=== PATIENT | female | born 1995 | race Caucasian/White ===

== ENCOUNTER → 2016-12-06 | Outpatient (REF) | payer BC, OTHER, MEDICAID ==
[~2016-12-06] MED LIST: ACET50TA PO; VITAPRTA PO
== END ==
LOC: M LAB REF 14:03
PROVIDERS: ATTEND Obstetrics & Gynecology
DX: Z12.4 Encounter for screening for malignant neoplasm of cervix (principal)

== ENCOUNTER → 2017-02-26 | Outpatient (CLI) | payer BC, MEDICAID ==
--- NOTE | 2017-02-26 09:46 | REP ---
LUMBAR SPINE SERIES: Five views. HISTORY: Low back pain. No comparison radiographs. FINDINGS: Lumbar vertebral body heights are preserved. Alignment is normal. There is some disc space narrowing at L3-4 and L4-5. Pedicles and posterior elements are intact. There is no evidence of spondylolysis or spondylolisthesis. Psoas margins are symmetric. Sacrum and SI joints are unremarkable. There are clips in right upper quadrant and surgical in the left upper quadrant of the abdomen. IMPRESSION: Mild degenerative narrowing of the L3-4 and L4-5 discs. No other abnormality.
== END ==
LOC: M CLY 08:36
PROVIDERS: ATTEND Family Medicine
DX: M54.5 Low back pain (principal); M51.36 Other intervertebral disc degeneration, lumbar region

== ENCOUNTER → 2017-07-11 | Outpatient (CLI) | payer BC, OTHER ==
[2017-07-11 19:59] LABS: BASO % 0.6 % (0.0-1.0); EOS # 0.1 10^3/uL (0.0-0.50); EOS % 1.5 % (0.0-3.0); IMMATURE GRANULOCYTE % 0.3 % (0-0); LYMPH # 1.9 10^3/uL (1.5-6.5); LYMPH % 26.2 % (24.0-44.0); MEAN CORPUSCULAR HEMOGLOBIN 29.2 pg (27.0-33.0); MEAN CORPUSCULAR HGB CONC 32.9 g/dl (32.0-36.5); MEAN CORPUSCULAR VOLUME 88.9 fl (80.0-96.0); MONO # 0.5 10^3/uL (0.0-0.8); MONO % 7.3 % (0.0-5.0); NEUTROPHILS # 4.7 10^3/uL (1.8-7.7); NEUTROPHILS % 64.1 % (36.0-66.0); PLATELET COUNT, AUTOMATED 285 10^3/uL (150-450); RED CELL DISTRIBUTION WIDTH 12.6 % (11.5-14.5)
[2017-07-13 12:04] LABS: HBsAg Prenatal NEGATIVE (NEGATIVE)
[2017-07-13 12:36] LABS: WHITE BLOOD COUNT 7.3 10^3/uL (4.0-10.0)
== END ==
LOC: M SMT 13:30
PROVIDERS: ATTEND Advanced Practice Midwife
DX: Z34.81 Encounter for supervision of other normal pregnancy, first trimester (principal); Z3A.08 8 weeks gestation of pregnancy

== ENCOUNTER → 2017-08-08 | Outpatient (REF) | payer OTHER | LOC: M LAB REF 17:28 | PROVIDERS: ATTEND Advanced Practice Midwife | DX: Z34.81 Encounter for supervision of other normal pregnancy, first trimester (principal) ==

== ENCOUNTER → 2017-09-05 | Outpatient (REF) | payer OTHER, MEDICAID | LOC: M LAB REF 16:59 | PROVIDERS: ATTEND Advanced Practice Midwife | DX: Z34.82 Encounter for supervision of other normal pregnancy, second trimester (principal); Z3A.00 Weeks of gestation of pregnancy not specified ==

== ENCOUNTER → 2017-09-19 | Outpatient (CLI) | payer BC, OTHER, MEDICAID ==
--- NOTE | 2017-09-19 13:50 | REP ---
Clinical: Anatomical evaluation. Comparison: None . Findings: Examination demonstrates a single live intrauterine in cephalic presentation. motion is identified by technologist. Placenta is noted posteriorly and grade zero without evidence for placenta previa or abruption. Amniotic fluid volume is normal. Cervix measures 4.7 cm in length and appears closed. No evidence for nuchal cord. Gestational age by LMP 18 weeks 4 days with ERIC 02/16/2018 . Gestational age by current measurements 19 weeks 0 days with ERIC 02/13/2018 . FHR equals 153 beats per minute. BPD 4.3 cm 18 weeks 6 days HC 15.9 cm 18 weeks 5 days AC 13.2 cm 18 weeks 5 days FL 3.1 cm 19 weeks 4 days HL 3.0 cm 19 weeks 5 days HC/AC ratio 1.21 Estimated weight 272 grams ( 64th percentile). Anatomical assessment demonstrates normal structures including cranium, choroid plexus, cavum, cerebellum/posterior fossa, lungs, diaphragm, stomach, cord insertion/three-vessel cord, kidneys/bladder, spine, and extremities. Impression: Single live intrauterine in cephalic presentation demonstrating appropriate interval growth. Limited evaluation of the facial features and heart/ventricular outflow tracts may warrant reevaluation and follow-up. Remainder of the anatomical assessment is complete and normal. Signed by Keaton Dsouza MD 09/19/2017 01:42 P
== END ==
LOC: M RAD 12:51
PROVIDERS: ATTEND Advanced Practice Midwife
DX: Z34.82 Encounter for supervision of other normal pregnancy, second trimester (principal); Z3A.18 18 weeks gestation of pregnancy

== ENCOUNTER → 2017-10-05 | Outpatient (CLI) | payer BC, OTHER, MEDICAID | LOC: M RAD 13:32 | DX: Z34.82 Encounter for supervision of other normal pregnancy, second trimester (principal); Z36.2 Encounter for other antenatal screening follow-up; Z3A.20 20 weeks gestation of pregnancy | CPT/HCPCS: 76816 ==

== ENCOUNTER → 2017-11-02 | Outpatient (CLI) | payer BC, OTHER, MEDICAID | LOC: M RAD 15:20 | DX: Z36.2 Encounter for other antenatal screening follow-up (principal) | CPT/HCPCS: 76816 ==

== ENCOUNTER → 2017-12-28 | Outpatient (CLI) | payer BC, OTHER, MEDICAID | LOC: M RAD 11:26 | DX: Z36.9 Encounter for antenatal screening, unspecified (principal); Z3A.32 32 weeks gestation of pregnancy ==

== ENCOUNTER 2018-01-20 08:48 | Inpatient (IN) | payer BC, OTHER, MEDICAID ==
[2018-01-20] MEDS ORDERED: ONDANSETRON 4MG/2ML VIAL (J2405) IV (13:15)
[2018-01-20 13:47] LABS: BASO # 0.1 10^3/uL (0.0-0.2); BASO % 0.4 % (0.0-1.0); EOS % 0.2 % (0.0-3.0); HEMATOCRIT 36.9 % (36.0-47.0); HEMOGLOBIN 12.7 g/dl (12.0-15.5); IMMATURE GRANULOCYTE % 0.3 % (0-3.0); LYMPH # 2.3 10^3/uL (1.5-6.5); MEAN CORPUSCULAR HEMOGLOBIN 30.2 pg (27.0-33.0); MEAN CORPUSCULAR HGB CONC 34.4 g/dl (32.0-36.5); MEAN CORPUSCULAR VOLUME 87.6 fl (80.0-96.0); MONO # 0.6 10^3/uL (0.0-0.8); MONO % 4.5 % (0.0-5.0); NEUTROPHILS # 9.2 10^3/uL (1.8-7.7); NEUTROPHILS % 75.6 % (36.0-66.0); PLATELET COUNT, AUTOMATED 298 10^3/uL (150-450); RED BLOOD COUNT 4.21 10^6/uL (4.00-5.40); RED CELL DISTRIBUTION WIDTH 13.4 % (11.5-14.5); WHITE BLOOD COUNT 12.1 10^3/uL (4.0-10.0)
[2018-01-20] MEDS: BETAMETHASONE SOLUSPAN 6MG/ML INJ 5ML (J0702) IM (13:52)
[2018-01-20] MEDS: NIFEdipine 10 MG CAP PO ×2 (13:57→15:35)
[2018-01-20 13:59] LABS: APPEARANCE, URINE CLEAR (CLEAR); BACTERIA, URINE AUTO NEGATIVE (NEGATIVE); BILIRUBIN, URINE AUTO NEGATIVE (NEGATIVE); BLOOD, URINE BLOOD NEGATIVE (NEGATIVE); COLOR, URINE STRAW (YELLOW); GLUCOSE, URINE (UA) AUTO NEGATIVE (NEGATIVE); KETONE, URINE AUTO TRACE mg/dL (NEGATIVE); LEUKOCYTE ESTERASE, URINE AUTO NEGATIVE (NEGATIVE); NITRITE, URINE AUTO NEGATIVE (NEGATIVE); PROTEIN, URINE AUTO NEGATIVE (NEGATIVE); RBC, URINE AUTO 0 /HPF (0-3); SPECIFIC GRAVITY URINE AUTO 1.003 (1.002-1.035); SQUAMOUS EPITHELIAL CELL UR AU 0 /HPF (0-6); UROBILINOGEN, URINE AUTO 0.2 mg/dL (0.0-2.0); WBC, URINE AUTO 0 /HPF (0-3)
[2018-01-20] MEDS: LR 1,000 ML IV ×2 (13:59→21:39)
[2018-01-20 14:07] LABS: AMPHETAMINES URINE REFLEX NEGATIVE (NEGATIVE); BARBITURATES URINE REFLEX NEGATIVE (NEGATIVE); BENZODIAZEPINES URINE REFLEX NEGATIVE (NEGATIVE); CANNABINOIDS URINE REFLEX NEGATIVE (NEGATIVE); COCAINE METABOLITE URINE REFLE NEGATIVE (NEGATIVE); METHADONE URINE REFLEX NEGATIVE (NEGATIVE); OPIATES URINE REFLEX NEGATIVE (NEGATIVE); PHENCYCLIDINE URINE REFLEX NEGATIVE (NEGATIVE)
[2018-01-20 14:12] LABS: ALBUMIN/GLOBULIN RATIO 0.67 (1.00-1.93); ALKALINE PHOSPHATASE 188 U/L (45-117); ALT/SGPT 23 U/L (12-78); ANION GAP 10 MEQ/L (8-16); AST/SGOT 27 U/L (7-37); BILIRUBIN,TOTAL 0.3 MG/DL (0.2-1.0); BLOOD UREA NITROGEN 6 MG/DL (7-18); CARBON DIOXIDE LEVEL 23 MEQ/L (21-32); CHLORIDE LEVEL 106 MEQ/L (98-107); GLOMERULAR FILTRATION RATE > 60.0 (>60); GLUCOSE, FASTING 67 MG/DL (70-100); SODIUM LEVEL 139 MEQ/L (136-145); TOTAL PROTEIN 7.5 GM/DL (6.4-8.2)
[2018-01-20] MEDS: CEFAZOLIN SOD 1 GM in APPROPRIATE DILUENT 1 EA IV (21:45)
[2018-01-20] MEDS: ACETAMINOPHEN 500 MG TAB PO (23:23)
[2018-01-21] MEDS: LR 1,000 ML IV ×2 (02:14→08:56)
[2018-01-21] MEDS: NIFEdipine 10 MG CAP PO (03:26)
[2018-01-21] MEDS: CEFAZOLIN SOD 1 GM in APPROPRIATE DILUENT 1 EA IV ×2 (05:49→14:15)
[2018-01-21] MEDS: ACETAMINOPHEN 500 MG TAB PO (07:40)
[2018-01-21] MEDS: BETAMETHASONE SOLUSPAN 6MG/ML INJ 5ML (J0702) IM (14:15)
[2018-01-29 06:31] LABS: SUMMARY SEE SEPARATE REPORT
== END 2018-01-21 16:30 | disposition home or self-care (01) | DRG 563 ==
LOC: M LDO 08:48 → M LDI 13:44
DX: O60.03 Preterm labor without delivery, third trimester (principal); E86.0 Dehydration; Z3A.36 36 weeks gestation of pregnancy; O99.843 Bariatric surgery status complicating pregnancy, third trimester; O99.613 Diseases of the digestive system complicating pregnancy, third trimester; K52.9 Noninfective gastroenteritis and colitis, unspecified; O99.283 Endocrine, nutritional and metabolic diseases complicating pregnancy, third trimester

== ENCOUNTER 2018-01-22 03:32 | Inpatient (IN) | payer BC, OTHER, MEDICAID ==
[2018-01-22] MEDS ORDERED: LR 1,000 ML IV (04:03)
[2018-01-22] MEDS ORDERED: ceFAZolin 2 GM/D5W 50 ML IV BAG (J0690 PER 500MG) As Ordered (04:06)
[2018-01-22] MEDS: LACTATED RINGER'S 1000 ML IV (04:10)
[2018-01-22] MEDS ORDERED: FENTANYL 2MCG/ML ROPIVACAINE 0.2% IN 0.9% NACL 200ML IVBAG As Ordered (04:10)
[2018-01-22] MEDS ORDERED: OXYTOCIN 30 UNITS IN 0.9% NaCl 500ML IV BAG (J2590) As Ordered (04:16)
[2018-01-22 04:30] LABS: HEMATOCRIT 36.1 % (36.0-47.0); HEMOGLOBIN 12.5 g/dl (12.0-15.5); MEAN CORPUSCULAR HEMOGLOBIN 30.3 pg (27.0-33.0); MEAN CORPUSCULAR HGB CONC 34.6 g/dl (32.0-36.5); MEAN CORPUSCULAR VOLUME 87.4 fl (80.0-96.0); PLATELET COUNT, AUTOMATED 317 10^3/uL (150-450); RED BLOOD COUNT 4.13 10^6/uL (4.00-5.40); RED CELL DISTRIBUTION WIDTH 13.2 % (11.5-14.5); WHITE BLOOD COUNT 12.9 10^3/uL (4.0-10.0)
[2018-01-22] MEDS ORDERED: MEASLES,MUMPS,RUBELLA VACCINE INJ (MMR-II) (90707) SC (04:45)
[2018-01-22] MEDS: LIDOCAINE 1% MDV 20ML VIAL INFIL (04:45)
[2018-01-22] MEDS ORDERED: MOM 30ML SUSPENSION UDC PO (04:45)
[2018-01-22] MEDS ORDERED: METHYLERGONOVINE MALEATE 0.2 MG TAB PO (04:45)
[2018-01-22] MEDS ORDERED: ANUSOL HC CREAM 30GM TOP (04:45)
[2018-01-22] MEDS ORDERED: DIBUCAINE 1% OINTMENT 30GM TOP (04:45)
[2018-01-22] MEDS ORDERED: RHOGAM 300 MCG (1500 IU) INJ (J2790) IM (04:45)
[2018-01-22] MEDS ORDERED: PERCOCET 5MG/325MG TAB As Ordered (04:47)
[2018-01-22] MEDS: PERCOCET 5MG/325MG TAB PO (04:53)
[2018-01-22] MEDS: OXYTOCIN DRIP 30 UNITS in APPROPRIATE DILUENT 1 EA IV (04:53)
[2018-01-22] MEDS: PRENATAL VITAMINS CHEWABLE TABLET PO (08:59)
[2018-01-22] MEDS ORDERED: CEFAZOLIN SOD 1 GM in APPROPRIATE DILUENT 1 EA IV (12:15)
[2018-01-22] MEDS: ACETAMINOPHEN 500 MG TAB PO ×2 (12:55→19:46)
[2018-01-23] MEDS: PRENATAL VITAMINS CHEWABLE TABLET PO (09:58)
[2018-01-23] MEDS: DOCUSATE SODIUM 100 MG CAP PO (09:58)
[2018-01-23] MEDS: ACETAMINOPHEN 500 MG TAB PO (09:59)
== END 2018-01-23 12:25 | disposition home or self-care (01) | DRG 560 ==
LOC: M LDO 03:32 → M LDI 03:56 → M OBS 05:54
PROVIDERS: Obstetrics & Gynecology
PROC: 10E0XZZ Delivery of Products of Conception, External Approach (ICD-10-PCS; principal; 2018-01-22)
PROC: 0HQ9XZZ Repair Perineum Skin, External Approach (ICD-10-PCS; 2018-01-22)
DX: O60.23X0 Term delivery with preterm labor, third trimester, not applicable or unspecified (principal); Z3A.36 36 weeks gestation of pregnancy; O99.844 Bariatric surgery status complicating childbirth; O70.0 First degree perineal laceration during delivery; Z37.0 Single live birth

== ENCOUNTER → 2018-07-02 | Outpatient (REF) | payer OTHER, MEDICAID ==
[2018-07-02 17:57] LABS: ANION GAP 5 MEQ/L (8-16); BLOOD UREA NITROGEN 10 MG/DL (7-18); CALCIUM LEVEL 8.5 MG/DL (8.5-10.1); CARBON DIOXIDE LEVEL 27 MEQ/L (21-32); CHLORIDE LEVEL 108 MEQ/L (98-107); CREATININE FOR GFR 0.89 MG/DL (0.55-1.30); GLOMERULAR FILTRATION RATE > 60.0 (>60); GLUCOSE, FASTING 80 MG/DL (70-100); POTASSIUM SERUM 4.4 MEQ/L (3.5-5.1); SODIUM LEVEL 140 MEQ/L (136-145)
== END ==
LOC: M SFHCCLAY 09:32
DX: R19.7 Diarrhea, unspecified (principal); R11.2 Nausea with vomiting, unspecified

== ENCOUNTER → 2018-07-11 | Outpatient (CLI) | payer BC, OTHER ==
[~2018-07-11] MED LIST changes: -ACET50TA PO; +GASTROGRAFIN SOLUTION 30ML (Q9963) As Ordered; -VITAPRTA PO
== END ==
LOC: M RAD 16:00
DX: R10.13 Epigastric pain (principal); Z98.84 Bariatric surgery status; Z90.49 Acquired absence of other specified parts of digestive tract
CPT/HCPCS: Q9963

== ENCOUNTER → 2018-08-29 | Outpatient (REF) | payer OTHER, MEDICAID ==
[2018-08-29 17:07] LABS: BASO % 0.9 % (0.0-1.0); EOS % 0.9 % (0.0-3.0); HEMATOCRIT 37.5 % (36.0-47.0); HEMOGLOBIN 12.7 g/dl (12.0-15.5); IMMATURE GRANULOCYTE % 0.5 % (0-3.0); LYMPH # 1.4 10^3/uL (1.5-6.5); LYMPH % 62.6 % (24.0-44.0); MEAN CORPUSCULAR HGB CONC 33.9 g/dl (32.0-36.5); MEAN CORPUSCULAR VOLUME 88.7 fl (80.0-96.0); MONO # 0.6 10^3/uL (0.0-0.8); MONO % 25.6 % (0.0-5.0); NEUTROPHILS % 9.5 % (36.0-66.0); PLATELET COUNT, AUTOMATED 187 10^3/uL (150-450); RED BLOOD COUNT 4.23 10^6/uL (4.00-5.40); RED CELL DISTRIBUTION WIDTH 13.3 % (11.5-14.5); WHITE BLOOD COUNT 2.2 10^3/uL (4.0-10.0)
[2018-08-29 17:14] LABS: ALBUMIN 3.5 GM/DL (3.2-5.2); ALBUMIN/GLOBULIN RATIO 0.97 (1.00-1.93); ALKALINE PHOSPHATASE 104 U/L (45-117); ALT/SGPT 39 U/L (12-78); AMYLASE 41 U/L (25-115); ANION GAP 7 MEQ/L (8-16); AST/SGOT 26 U/L (7-37); BILIRUBIN,TOTAL 0.3 MG/DL (0.2-1.0); BLOOD UREA NITROGEN 15 MG/DL (7-18); CALCIUM LEVEL 8.7 MG/DL (8.5-10.1); CARBON DIOXIDE LEVEL 24 MEQ/L (21-32); CHLORIDE LEVEL 108 MEQ/L (98-107); CREATININE FOR GFR 0.92 MG/DL (0.55-1.30); GLOMERULAR FILTRATION RATE > 60.0 (>60); GLUCOSE, FASTING 78 MG/DL (70-100); LIPASE 109 U/L (73-393); POTASSIUM SERUM 4.2 MEQ/L (3.5-5.1); SODIUM LEVEL 139 MEQ/L (136-145); TOTAL PROTEIN 7.1 GM/DL (6.4-8.2)
[2018-08-29 17:15] LABS: THYROXINE (T4) 13.1 UG/DL (4.5-12.0); TOTAL T3 147.7 NG/DL (60.0-181.0)
[2018-08-29 17:31] LABS: ERYTHROCYTE SEDIMENTATION RATE 43 mm/hr (0-20)
[2018-08-29 17:52] LABS: NEUTROPHILS # 0.2 10^3/uL (1.8-7.7); POSITIVE DIFF POS FLAG
[2018-09-01 00:06] LABS: TISSUE TRANSGLUTAMINASE IgG <2 U/mL (0-5)
== END ==
LOC: M SFHCCLAY 11:34
DX: R11.2 Nausea with vomiting, unspecified (principal); K52.9 Noninfective gastroenteritis and colitis, unspecified

== ENCOUNTER → 2019-09-02 | Outpatient (CLI) | payer BC, OTHER ==
[~2019-09-02] MED LIST changes: +COLA100C5 PO; -GASTROGRAFIN SOLUTION 30ML (Q9963) As Ordered; +MAPA500T2 PO; +VITAPRTA PO
--- NOTE | 2019-09-03 09:31 | REP ---
OB ULTRASOUND: Real-time sonographic evaluation of the gravid uterus is performed utilizing transabdominal and endovaginal technique. There is a single living intrauterine gestation. The estimated gestational age is 18 weeks 0 days, based on today's ultrasound with EDC 02/03/2020. Biometry and Growth: BPD 40 mm = 18 weeks 2 days, 57th percentile HC 147 mm = 17 weeks 6 days, 47th percentile AC 124 mm = 18 weeks 0 days, 51st percentile FL 25 mm = 17 weeks 5 days, 40th percentile HC/AC ratio 1.19 within normal range. Estimated weight 213 grams, 42nd percentile. SEEN/GROSSLY UNREMARKABLE Lateral ventricles Yes Posterior fossa Yes Upper lip No Four-chamber heart No LVOT No RVOT No Stomach Yes Cord insertion Yes Three vessel cord Yes Kidneys No Bladder Yes Spine No Cervical length: Cervix is measured on transvaginal imaging and measures 4.4 cm in length. heart rate: 147 beats per minute. position: Breech. Placenta: Anterior and grade 0 with no previa or abruption. Amniotic fluid: Appears within normal limits. Crescentic fluid is seen just superior to the cervix with a thin-wall membrane the fluid from the fetus. This may represent an area of persistent chorioamniotic separation or an old subchorionic hemorrhage. Alternatively, it could represent membrane with resolving gestational sac from demise of a concurrent twin gestation. Followup is suggested. Please note the typical placenta is 2.2 cm from the internal cervical os. Unreviewed
== END ==
LOC: M RAD 17:03
PROVIDERS: ATTEND Advanced Practice Midwife
DX: Z34.82 Encounter for supervision of other normal pregnancy, second trimester (principal)

== ENCOUNTER → 2019-09-26 | Outpatient (CLI) | payer BC, OTHER ==
--- NOTE | 2019-09-26 15:08 | REP ---
Obstetric sonography: History: Supervision of , followup examination, anatomy. Comparison study September 02, 2019. Findings: Scanning through the gravid uterus demonstrates a viable single intrauterine gestation in a breech lie. motion is observed and heart rate is recorded at 142 beats per minute. An anterior placenta is seen, grade 0 without evidence of previa. Amniotic fluid is subjectively normal. Closed cervical length measured transabdominally is 4.0 cm. No extrauterine abnormalities observed. There has been appropriate interval growth. No anomaly is seen. The following anatomic structures are identified today and felt to be unremarkable: Face and profile, four-chamber heart with left and right ventricular outflow tract views, kidneys, spine. Other anatomic structures were previously observed. Biometry chart: BPD 5.0 cm = 21 weeks 1 day HC 18.8 cm = 21 weeks 1 day AC 15.4 cm = 20 weeks 6 days FL 3.6 cm = 21 weeks 4 days HL 3.3 cm = 21 weeks 1 day HC/AC ratio normal 1.22. Cephalic index normal 0.73. Estimated weight 391 grams, 0 pounds 13 ounces, 33rd percentile for 21 weeks 4 days. Impression: Viable single intrauterine gestation at 20 weeks 8 days by today's composite sonographic criteria. Expected gestational age estimate based on prior sonography is 21 weeks 4 days. ERIC by prior sonography February 03, 2020. In conjunction with the prior sonogram, anatomic survey is felt to be complete.
== END ==
LOC: M WHC 12:49
PROVIDERS: ATTEND Specialist
DX: Z34.82 Encounter for supervision of other normal pregnancy, second trimester (principal)

== ENCOUNTER → 2019-12-02 | Outpatient (CLI) | payer BC, OTHER | LOC: M WHC 13:58 | PROVIDERS: ATTEND Advanced Practice Midwife | DX: O99.843 Bariatric surgery status complicating pregnancy, third trimester (principal) ==

== ENCOUNTER → 2019-12-25 | Outpatient (CLI) | payer BC ==
--- NOTE | 2019-12-25 14:50 | REP ---
OB ULTRASOUND: Real-time sonographic evaluation of the gravid uterus is performed. There is a single living intrauterine gestation. The estimated gestational age 34 weeks 2 days, EDC 02/03/2020. Today's measurements indicate appropriate growth. Biometry and Growth: BPD 79 mm = 31 weeks 6 days, 15th percentile HC 314 mm = 35 weeks 1 day, 64th percentile AC 290 mm = 33 weeks 0 days, 31st percentile FL 64 mm = 32 weeks 6 days, 29th percentile HC/AC ratio 1.08 within normal range of 0.94 to 1.13. Estimated weight 2167 grams, 29th percentile. Cervical length: Closed and measures 3.7 cm in length. heart rate: 149 beats per minute. position: Vertex. Placenta: Anterior and grade 1 with no previa or abruption. Amniotic fluid: Within normal limits. CLEO 14.4, normal range 8.0 to 24.8.
== END ==
LOC: M WHC 12:04
PROVIDERS: ATTEND Advanced Practice Midwife
DX: O99.843 Bariatric surgery status complicating pregnancy, third trimester (principal)

== ENCOUNTER → 2020-01-09 | Outpatient (REF) | payer OTHER | LOC: M SFHCWAGY 16:50 | PROVIDERS: ATTEND Obstetrics & Gynecology | DX: O99.843 Bariatric surgery status complicating pregnancy, third trimester (principal) ==

== ENCOUNTER → 2020-01-15 | Outpatient (CLI) | payer BC, MEDICAID ==
--- NOTE | 2020-01-15 18:22 | REP ---
Clinical: Anatomical evaluation. Comparison: 12/25/2019 . Findings: Examination demonstrates a single live intrauterine in cephalic presentation. motion is identified by technologist. Placenta is noted anterior and grade I I without evidence for placenta previa or abruption. Amniotic fluid volume is normal. Cervix measures 3.1 cm in length and appears closed. No evidence for nuchal cord. Gestational age by LMP 37 weeks 2 days with ERIC 02/03/2020 . Gestational age by current measurements 36 weeks 2 days with ERIC 02/10/2020 . FHR equals 142 beats per minute. Estimated weight by current biometrical measurements 3088 grams ( 50th percentile). Amniotic fluid index: 17.2 cm Anatomical assessment demonstrates normal structures including cranium, facial features, diaphragm, stomach, cord insertion/three-vessel cord, and kidneys/bladder. Impression: Single live intrauterine in cephalic presentation demonstrating appropriate estimated weight and interval growth. No gross abnormalities are identified.
== END ==
LOC: M WHC 12:59
PROVIDERS: ATTEND Advanced Practice Midwife
DX: O99.843 Bariatric surgery status complicating pregnancy, third trimester (principal)

== ENCOUNTER 2020-01-29 08:57 | Inpatient (IN) | payer BC, MEDICAID, OTHER ==
[2020-01-29] VITALS (14 sets, daily range): BP systolic 97–129; BP diastolic 55–67
[~2020-01-29] VITALS: Ht 165.1 cm; Wt 122.3 kg
[2020-01-29] MEDS ORDERED: PRO AIR INHALER (09:32)
[2020-01-29] MEDS ORDERED: ZYRTTAB8 PO (09:32)
[2020-01-29] MEDS ORDERED: ALBUTEROL 90 MCG/ACT 8GM HFA INHALER INH PRN (10:15)
[2020-01-29] MEDS: miSOPROStol 50 MCG 1/2 TAB (S0191) PO SCH ×3 (10:39→19:38)
--- NOTE | 2020-01-29 10:43 | HPEPDOC ---
Obstetrical History & Physical General Date of Admission January 29, 2020 at 08:57 History of Present Illness Cece is a 24-year-old at 39.1 EGA with an ERIC of 02/04/2020 based on first trimester ultrasound. She is presenting today for social induction of labor. She denies contractions, leakage of fluid, or discharge. She is feeling baby move. She initiated care [facility] in the first trimester and has been compliant throughout. Age: 24 : 4 Term: 2 Pre-term: 1 Abortions: 1 Livin Care Care: Good Care Dating Final EDC: February 04, 2020 Past Medical History Past Medical History Medical History Past obstetrical history: 03/2016 she delivered a 7 lbs. 5 oz. male infant at 39.2 EGA via normal spontaneous vaginal delivery (dry , baby in NICU) 01/2018 she delivered a 5 lbs. 11 oz. male at 36.3 EGA via normal spontaneous vaginal delivery 04/2019 she miscarried at 8 weeks Past medical history: Asthma, anxiety, history of gastric bypass, history of delivery at 36.3 weeks Surgical History: Other (gastric bypass, cholecystectomy) Family History Family History Brother with cerebral palsy. Father diagnosed with diabetes and hypertension. Social History Marital Status: Family situation: Spouse/partner home Psychosocial History: Anxiety * Smoker: non-smoker Alcohol: Denies Drugs: denies Imunizations Tdap status: declined Allergies Coded Allergies: Penicillins (Verified Allergy, Intermediate, HIVES, 01/29/20) Medications Scheduled Cetirizine HCl/Pseudoephedrine (Zyrtec-D Tablet) 1 Each Tab.er.12h, 2 TAB PO DAILY Scheduled PRN [Pro Air Inhaler] , 2 PUFFS PRN PRN for SOB/WHEEZING Physical Examination Physical Examination GENERAL: Alert and oriented times three. BREAST: . ABDOMEN: Gravid and non-tender to touch. FETUS: Is vertex (VTX) by sterile vaginal examination (SVE), fetus is vertex (VTX) by Charlie. HEART RATE: Regular rate and rhythm. LUNGS: Clear to auscultation (CTA). EXTREMITIES: No edema. No clonus. Deep tendon reflexes (DTRs) + . Laboratory Data 24H LABS Laboratory Tests 2 01/29/20 09:30: Serology Scanned Report Hepatitis B Testing Pertinent Laboratoy Data Blood Type: O+ RBC Antibody Screen: Negative HIV: Negative Hepatitis B: Negative Hepatitis C: Negative Rubella: Nonreactive (non immune, will need MMR after delivery) Chlamydia/Gonorrhea: Negative Group B Streptococcus: Negative Other Ultrasounds 09/02/2019: Single IUP at estimated gestational age of 18 weeks 0 days. Anterior placenta without previa or abruption. 09/26/2019: Viable single intrauterine gestation at 20 weeks 8 days by today's composite sonographic criteria. Expected gestational age estimate based on prior sonography is 21 weeks 4 days. ERIC by prior sonography February 03, 2020. In conjunction with the prior sonogram, anatomic survey is felt to be complete. 12/02/2019: Single live intrauterine in cephalic presentation demonstrating appropriate interval growth. Possible posterior succenturiate lobe. 12/25/2019: Single IUP, vertex position, anterior placenta grade 1. 01/15/2020: Single live intrauterine in cephalic presentation demonstrating appropriate estimated weight and interval growth. No gross abnormalities are identified. Vaginal Examination Dilation: Fingertip Effacement: other (thick) Station: -3 Cervical Consistency: Firm Cervical Position: Posterior Presentation: Cephalic presentation Position: Vertex (occiput) Assessment Heart Rate (FHR): 140 Variability: Moderate Accelerations: Positive Decelerations: None Tocometer Contractions: No Assessment/Plan Assessment Cece is a 24-year-old (G)4 para (P)2-1-1-2 at 39+1 weeks by first trimester ultrasound. Presents to Labor and Delivery (L&D) for social induction of labor. Plan Admit and orient. Raw Scales Operator and consent. Diet: Regular. Group B Streptococcus (GBS) negative. Labs and intravenous (IV) per unit protocol. Counseled on Pitocin and induction of labor (IOL). Start with Cytotec. Anticipate normal spontaneous delivery (). C-S as appropriate. Labor and Delivery Counseling Patient was counseled on the risks of induction of labor, including but not limited to: Needing blood products, surgical vaginal delivery, and risk of C- section. She understands and wishes to proceed with induction of labor. GME ATTESTATION GME ATTESTATION My faculty preceptor for this patient encounter was physically present during the encounter and was fully available. All aspects of the patient interview, examination, medical decision making process, and medical care plan development were reviewed and approved by the faculty preceptor. The faculty preceptor is aware and concurs with the plan as stated in the body of this note and will attest to such by his/her cosignature. VICKIE MEDINA D.O. January 29, 2020 10:43
[2020-01-29 11:06] LABS: HEMATOCRIT 31.7 % (36.0-47.0); HEMOGLOBIN 10.8 g/dl (12.0-15.5); MEAN CORPUSCULAR HEMOGLOBIN 30.2 pg (27.0-33.0); MEAN CORPUSCULAR HGB CONC 34.1 g/dl (32.0-36.5); MEAN CORPUSCULAR VOLUME 88.5 fl (80.0-96.0); PLATELET COUNT, AUTOMATED 284 10^3/uL (150-450); RED BLOOD COUNT 3.58 10^6/uL (4.00-5.40); WHITE BLOOD COUNT 7.8 10^3/uL (4.0-10.0)
[2020-01-29] MEDS ORDERED: SLF 3 ML SYR IV PRN (12:00)
[2020-01-29] MEDS ORDERED: SLF 3 ML SYR IV SCH (14:00)
[2020-01-29] MEDS ORDERED: OXYTOCIN DRIP 30 UNITS in IV 1 EA IV SCH (23:30)
[2020-01-30] VITALS (41 sets, daily range): BP systolic 86–179; BP diastolic 48–98
--- NOTE | 2020-01-30 00:26 | IPNPDOC ---
Text Note Date of Service The patient was seen on 01/30/20. NOTE Subjective: Feeling comfortable right now, contractions are becoming somewhat more prominent. Objective: Abdomen: gravid SVE: 3/80/-2 FHR: 135 bpm, moderate variability, accels, no decels, Cat I tracing TOCO: CTX q 3-7 minutes Assessment: Cece is a 24-year-old at 39.1 EGA with an ERIC of 02/04/2020 based on first trimester ultrasound. She presented 01/29/20 for social induction of labor. Plan: S/p 3 doses of miso AROM with clear fluid, FSE and IUPC placed Starting pitocin status reassuring Anticipate Vaginal Delivery VS,Fishbone, I+O VS, Fishbone, I+O Laboratory Tests 01/29/20 10:37 Vital Signs Date Time Temp Pulse Resp B/P (MAP) Pulse Ox O2 Delivery O2 Flow Rate FiO2 01/29/20 18:21 97.8 72 18 99/57 (71) I&O- Last 24 Hours up to 6 AM 01/30/20 06:00 Intake Total 1500 ml Balance 1500 ml GME ATTESTATION GME ATTESTATION My faculty preceptor for this patient encounter was physically present during the encounter and was fully available. All aspects of the patient interview, examination, medical decision making process, and medical care plan development were reviewed and approved by the faculty preceptor. The faculty preceptor is aware and concurs with the plan as stated in the body of this note and will attest to such by his/her cosignature. VICKIE MEDINA D.O. January 30, 2020 00:26
[2020-01-30] MEDS ORDERED: BUTORPHANOL 2 MG/ML INJ (J0595) IV ONE (00:45)
[2020-01-30] MEDS ORDERED: PROMETHAZINE INJ 25 MG/ML VIAL (J2550) IV ONE (00:45)
[2020-01-30] MEDS: LR 1,000 ML IV SCH ×2 (00:58→04:20)
[2020-01-30] MEDS ORDERED: FENTANYL 2MCG/ML ROPIVACAINE 0.2% IN 0.9% NACL 100ML IVBAG As Ordered ONE (03:44)
[2020-01-30] MEDS ORDERED: LACTATED RINGER'S 1000 ML IV PRN (05:00)
[2020-01-30] MEDS ORDERED: NALOXONE INJ 0.4MG/1ML VIAL (J2310 PER 1MG) IV PRN (05:00)
[2020-01-30] MEDS ORDERED: EPIDURAL/PCA KEYS XX PRN (05:00)
[2020-01-30] MEDS ORDERED: ONDANSETRON 4MG/2ML VIAL IV PRN (05:00)
[2020-01-30] MEDS ORDERED: ePHEDrine SULFATE 25 MG/5 ML(5MG/ML) SYRINGE IV PRN (05:00)
[2020-01-30] MEDS ORDERED: diphenhydrAMINE 50MG/ML VIAL (J1200) IV PRN (05:00)
[2020-01-30] MEDS ORDERED: REFRIGERATOR IV KEYS XX PRN (05:00)
[2020-01-30] MEDS ORDERED: FENTANYL/ROPIVACAINE/NACL BAG 100 ML EPIDURAL SCH (05:00)
[2020-01-30] MEDS ORDERED: EPIDURAL COMMENT XX SCH (05:00)
[2020-01-30 08:14] LABS: CORD GAS ABE V -6.9; CORD GAS HCO3 V 15.7 MEQ/L; CORD GAS O2 SAT V 87.8 %; CORD GAS PCO2 V 26.6 mmHg; CORD GAS PH V 7.39 UNITS; CORD GAS PO2 V 42.9 mmHg; CORD GAS SBC V 18.7 MEQ/L; CORD GAS TCO2 V 16.6 MEQ/L
[2020-01-30 08:17] LABS: CORD GAS HCO3 A 15.4 MEQ/L; CORD GAS O2 SAT A 84.8 %; CORD GAS PCO2 A 27.9 mmHg; CORD GAS PH A 7.359 UNITS; CORD GAS PO2 A 41.8 mmHg; CORD GAS SBC A 17.9 MEQ/L; CORD GAS TCO2 A 16.2 MEQ/L
[2020-01-30] MEDS ORDERED: OXYTOCIN DRIP 30 UNITS in IV 1 EA IV SCH (08:25)
[2020-01-30] MEDS ORDERED: MOM 30ML SUSPENSION UDC PO PRN (09:00)
[2020-01-30] MEDS ORDERED: ANUSOL HC CREAM 30GM TOP PRN (09:00)
[2020-01-30] MEDS ORDERED: RHOGAM 300 MCG (1500 IU) INJ (J2790) IM SCH (09:00)
[2020-01-30] MEDS ORDERED: ACETAMINOPHEN TAB 650MG DOSE (2X325MG) PO PRN (09:00)
[2020-01-30] MEDS ORDERED: DOCUSATE SODIUM 100 MG CAP PO PRN (09:00)
[2020-01-30] MEDS ORDERED: LIDOCAINE 1% MDV 20ML VIAL INFIL ONE (09:00)
[2020-01-30] MEDS ORDERED: MEASLES,MUMPS,RUBELLA VACCINE INJ (MMR-II) (90707) SC SCH (09:00)
[2020-01-30] MEDS ORDERED: DIBUCAINE 1% OINTMENT 30GM TOP PRN (09:00)
--- NOTE | 2020-01-30 09:06 | DNPDOC ---
[facility] Delivery Note Delivery Note DATE OF DELIVERY: 01/30/2020 PREDELIVERY DIAGNOSIS: 39+2/7 weeks' gestation and labor. POST DELIVERY DIAGNOSIS: Delivered. PROCEDURE: Spontaneous vaginal delivery. PROVIDER: Jacqueline Bauer CNM ANESTHESIA: Epidural. ESTIMATED BLOOD LOSS: 350 mL. FINDINGS: 7 pound 5 ounce, 3330gm male infant, Score 9/9, tight nuchal cord times one. DELIVERY SUMMARY: Patient is a 24-year-old 4 now para 2-1-1-3 who was admitted to labor and delivery for elective induction of labor. She received misoprostol, pitocin and AROM for induction. She utilized an epidural for labor coping with minimal relief. AROM clear fluid 0112. Cervix reduced for fully dilated @ 0754. Viable male delivered OA through tight nuchal cord @ 0801 in all 4's position. Transitioned on maternal abdomen. Cord gases obtained, arterial 7.359 with BE -8.0; venous 7.390 with BE -6.9. Cord doubly clamped and cut once pulsations ceased. Apgars 9/9. Placenta gibbons, intact with 3v cord 0825. Fundus firmed with massage and IV pitocin bolus. 1st degree perineal laceration repaired after infiltration with lidocaine using 3-0 vicryl rapide. EBL 350ml. Prophylactic methergine due to habitus and inability to adequately assess u terine tone. Sponge, sharp and instrument count correct. Parents are naming their son Jacqueline Bauer CNM January 30, 2020 09:06
[2020-01-30] MEDS: ACETAMINOPHEN 500 MG TAB PO PRN ×3 (09:14→22:17)
[2020-01-30] MEDS ORDERED: METHYLERGONOVINE MALEATE 0.2 MG TAB PO PRN (09:15)
[2020-01-30] MEDS: PRENATAL VITAMINS CHEWABLE TABLET PO SCH (09:21)
[2020-01-30] MEDS: METHYLERGONOVINE MALEATE 0.2 MG TAB PO SCH ×3 (09:22→20:59)
[2020-01-31] MEDS: METHYLERGONOVINE MALEATE 0.2 MG TAB PO SCH (03:25)
[2020-01-31] MEDS: ACETAMINOPHEN 500 MG TAB PO PRN ×2 (03:27→09:43)
[2020-01-31 06:06] VITALS: BP 138/89
--- NOTE | 2020-01-31 07:13 | IPNPDOC ---
Text Note Date of Service The patient was seen on 01/31/20. NOTE PP #1 Feels well. Voiding. Adequate pain management VSS, afebrile, normotensive Breasts soft, nipples intact Fundus firm, NT, down 1 FB Lochia rubra scant without odor Perineum well approximated PP #1 Routine care. Anticipate D/C in am VS,Fishbone, I+O VS, Fishbone, I+O Vital Signs Date Time Temp Pulse Resp B/P (MAP) Pulse Ox O2 Delivery O2 Flow Rate FiO2 01/31/20 06:06 97.4 67 18 138/89 (105) 98 Room Air I&O- Last 24 Hours up to 6 AM 01/31/20 06:00 Intake Total 2917 ml Output Total 1550 ml Balance 1367 ml Jacqueline Bauer CNM January 31, 2020 07:13
[2020-01-31] MEDS: PRENATAL VITAMINS CHEWABLE TABLET PO SCH (09:43)
== END 2020-01-31 16:10 | disposition home or self-care (01) | DRG 560 ==
LOC: M LDI 08:57 → M OBS 01-30 12:08
PROVIDERS: ADMIT Specialist; ATTEND Advanced Practice Midwife
PROC: 3E0P7GC Introduction of Other Therapeutic Substance into Female Reproductive, Via Natural or Artificial Opening (ICD-10-PCS; 2020-01-29)
PROC: 10E0XZZ Delivery of Products of Conception, External Approach (ICD-10-PCS; principal; 2020-01-30)
PROC: 0HQ9XZZ Repair Perineum Skin, External Approach (ICD-10-PCS; 2020-01-30)
PROC: 10907ZC Drainage of Amniotic Fluid, Therapeutic from Products of Conception, Via Natural or Artificial Opening (ICD-10-PCS; 2020-01-30)
DX: O99.844 Bariatric surgery status complicating childbirth (principal); Z3A.39 39 weeks gestation of pregnancy; O99.52 Diseases of the respiratory system complicating childbirth; J45.909 Unspecified asthma, uncomplicated; O69.1XX0 Labor and delivery complicated by cord around neck, with compression, not applicable or unspecified; O70.0 First degree perineal laceration during delivery; Z37.0 Single live birth

== ENCOUNTER → 2020-05-06 | Outpatient (REF) | payer BC, MEDICAID, OTHER ==
[~2020-05-06] MED LIST changes: +PRO AIR INHALER; +ZYRTTAB8 PO
== END ==
LOC: M SFHCWAGY 13:04
PROVIDERS: ATTEND Advanced Practice Midwife
DX: Z12.4 Encounter for screening for malignant neoplasm of cervix (principal)

== ENCOUNTER → 2020-06-11 | Outpatient (CLI) | payer MEDICAID | LOC: M PLALAB 12:29 | PROVIDERS: ATTEND Surgery | DX: D23.5 Other benign neoplasm of skin of trunk (principal); Z13.79 Encounter for other screening for genetic and chromosomal anomalies ==

== ENCOUNTER → 2020-06-18 | Outpatient (CLI) | payer MEDICAID ==
--- NOTE | 2020-06-24 08:20 | REP ---
LEFT BREAST ULTRASOUND HISTORY: Palpable lumps at 1 and 3 o'clock left breast Real-time sonographic evaluation of the left breast was performed in the region of 1 and 3 o'clock at the site of two reported palpable abnormalities. There is fibroglandular tissue present in these regions. I do not see a discrete cystic or solid mass. IMPRESSION: BI-RADS Category 2 benign ultrasound left breast with no cystic or solid mass at the region of 1 o'clock and 3 o'clock left breast, at the site of reported palpable abnormalities. Clinical correlation and follow-up recommended. A negative ultrasound should not deter biopsy if there is a clinically suspicious palpable mass present. MTDD
== END ==
LOC: M WHC 15:12
PROVIDERS: ATTEND Surgery
DX: R92.2 Inconclusive mammogram (principal)

== ENCOUNTER → 2020-07-07 | Outpatient (CLI) | payer MEDICAID ==
[~2020-07-07] MED LIST changes: +E-Z-HD 98% w/w 340GM SUSP BTL As Ordered ONE; +E-Z-PAQUE 96% w/w SUSP 176GM BTL As Ordered ONE
--- NOTE | 2020-07-13 11:30 | REP ---
The procedure was performed by [facility], under the direct supervision of Dr. Bhatt. The images were reviewed with Dr. Bhatt prior to dictation. The free lance model film shows no organomegaly or pathological masses. The intestinal gas pattern is nonspecific. There is an intrauterine device (IUD) in the pelvis. This patient is status post gilda-en-Y surgery in 2012. Liquid barium was given in the erect position, as well as in the prone oblique position in order to perform a single-contrast upper GI exam. Additional barium was given at the end of the examination in order to perform a small bowel follow-through. The oral and pharyngeal stages of deglutition are unremarkable. Esophageal transport is prompt and efficient. There is no evidence of esophagitis, stricture, or mucosal ring. There is no hiatal hernia. No gastroesophageal reflux was visualized during the exam. The remaining stomach madera are normally outlined. There is free flow of contrast through the anastomosis. No extravasation or stricture is visualized. The barium column was followed through the small bowel to the level of the terminal ileum. Small bowel transit time was approximately 30 minutes. During fluoroscopy gentle palpation shows all loops are freely movable and pliable. There are no fixed or angulated loops. The small bowel mucosal pattern is normal in course and caliber. Spot filming of the terminal ileum shows it to be unremarkable. IMPRESSION: Unremarkable upper gastrointestinal (GI) and small bowel follow-through. 0.7 minutes of fluoroscopy time was utilized for this exam. MTDD
== END ==
LOC: M RAD 08:10
PROVIDERS: ATTEND Surgery
DX: R10.9 Unspecified abdominal pain (principal); Z98.84 Bariatric surgery status

== ENCOUNTER → 2020-11-11 | Outpatient (REF) | payer MEDICAID, OTHER ==
[~2020-11-11] MED LIST changes: -E-Z-HD 98% w/w 340GM SUSP BTL As Ordered ONE; -E-Z-PAQUE 96% w/w SUSP 176GM BTL As Ordered ONE
[2020-11-11 12:18] LABS: BASO # 0.1 10^3/uL (0.0-0.2); EOS # 0.2 10^3/uL (0.0-0.5); HEMATOCRIT 38.5 % (36.0-47.0); LYMPH # 2.7 10^3/uL (1.5-5.0); LYMPH % 44.4 % (24.0-44.0); MEAN CORPUSCULAR HEMOGLOBIN 27.8 pg (27.0-33.0); MEAN CORPUSCULAR HGB CONC 31.2 g/dl (32.0-36.5); MEAN CORPUSCULAR VOLUME 89.3 fl (80.0-96.0); MONO # 0.5 10^3/uL (0.0-0.8); MONO % 8.6 % (2.0-8.0); NEUTROPHILS # 2.6 10^3/uL (1.5-8.5); NEUTROPHILS % 42.8 % (36.0-66.0); PLATELET COUNT, AUTOMATED 258 10^3/uL (150-450); RED BLOOD COUNT 4.31 10^6/uL (4.00-5.40)
[2020-11-11 12:48] LABS: ALBUMIN 3.5 GM/DL (3.2-5.2); ALT/SGPT 27 U/L (12-78); BILIRUBIN,TOTAL 0.2 MG/DL (0.2-1.0); BLOOD UREA NITROGEN 16 MG/DL (7-18); CALCIUM LEVEL 8.9 MG/DL (8.5-10.1); CARBON DIOXIDE LEVEL 28 MEQ/L (21-32); CHLORIDE LEVEL 105 MEQ/L (98-107); CREATININE FOR GFR 0.89 MG/DL (0.55-1.30); GLOMERULAR FILTRATION RATE > 60.0 (>60); GLUCOSE, FASTING 102 MG/DL (70-100); POTASSIUM SERUM 3.6 MEQ/L (3.5-5.1); SODIUM LEVEL 140 MEQ/L (136-145); TOTAL PROTEIN 7.1 GM/DL (6.4-8.2)
[2020-11-11 13:37] LABS: ERYTHROCYTE SEDIMENTATION RATE 35 mm/hr (0-20)
== END ==
LOC: M SFHCCLAY 08:50
PROVIDERS: ATTEND Family Medicine
DX: R51.9 Headache, unspecified (principal)

== ENCOUNTER → 2022-07-14 | Outpatient (CLI) | payer OTHER | LOC: M CLY 13:47 | PROVIDERS: ATTEND Family Medicine | DX: M54.6 Pain in thoracic spine (principal) ==

== ENCOUNTER → 2024-02-08 | Outpatient (CLI) | payer OTHER | LOC: M WHC 13:34 | PROVIDERS: ATTEND Nurse Practitioner Women's Health | DX: Z12.31 Encounter for screening mammogram for malignant neoplasm of breast (principal) ==

== ENCOUNTER → 2025-05-11 | Outpatient (CLI) | payer OTHER | LOC: M WHC 15:48 | PROVIDERS: ATTEND Surgery | DX: Z12.31 Encounter for screening mammogram for malignant neoplasm of breast (principal); R92.313 Mammographic fatty tissue density, bilateral breasts; Z80.3 Family history of malignant neoplasm of breast ==

== ENCOUNTER → 2025-07-20 | Outpatient (REF) | payer OTHER ==
[2025-07-22 15:47] LABS: HPV APTIMA Not Detected (Not Detected)
== END ==
LOC: M PLALAB 10:57
PROVIDERS: ATTEND Obstetrics & Gynecology
DX: Z01.419 Encounter for gynecological examination (general) (routine) without abnormal findings (principal)